=== PATIENT | female | born 1980 | race Caucasian/White ===

== ENCOUNTER → 2021-01-16 | Outpatient (CLI) | payer OTHER ==
[~2021-01-16] MED LIST: REGLAN10 MG PO; ZOFRAN4 MG PO
== END ==
LOC: KOH-I 15:14
DX: M54.5 Low back pain (principal)
CPT/HCPCS: 72110

== ENCOUNTER 2021-09-18 19:22 | Emergency (ER) | payer OTHER ==
[2021-09-18 20:06] LABS: HEMOGLOBIN 14.8 gm/dl (12.3-15.3); RED BLOOD COUNT 5.46 M/UL (4.00-5.10); WHITE BLOOD COUNT 5.6 K/UL (4.5-11.0)
[2021-09-18 20:38] LABS: BUN/CREATININE RATIO 8 (0-10)
== END 2021-09-19 02:00 | disposition left against medical advice (07) ==
LOC: ER1 19:22
PROVIDERS: Student in an Organized Health Care Education/Training Program
DX: G40.909 Epilepsy, unspecified, not intractable, without status epilepticus (principal); R41.82 Altered mental status, unspecified
CPT/HCPCS: 70450; 71045; 80053; 80307; 81001; 82140; 82550; 82553; 83605; 84484; 85025; 96372; 99283; G0480